=== PATIENT | female | born 1985 | race Caucasian/White ===

== ENCOUNTER → 2020-08-16 | Outpatient (CLI) | payer OTHER ==
--- NOTE | 2020-08-16 15:45 | US ---
EXAMINATION TYPE: Transabdominal DATE OF EXAM: 08/16/2020 3:27 PM COMPARISON: NONE CLINICAL HISTORY: [id number] Confirm dates. confirm dates EXAM PERFORMED: Transabdominal (TA) EXAM MEASUREMENTS: GESTATIONAL AGE / DATING Physician Established: Not yet established Dates by LMP: (8 weeks/6 days) EDC: 03/22/21 Dates by First Scan: No previous this is first scan Dates by Current Scan for: (8 weeks/2 days) EDC: 03/26/21 MATERNAL ANATOMY Uterus: 11.1 x 6.0 x 8.0cm Right Ovary: 3.1 x 2.0 x 2.8cm Left Ovary: 2.8 x 1.5 x 1.7cm Post CDS / Adnexa: wnl Presence of free fluid: no Presence of corpus luteal cyst: complex area right ovary = 2.1 x 1.9 x 2.0cm GESTATION / SURVEY CRL: 1.7cm (8 weeks/2 days) Yolk Sac (normal less than 6mm): 0.3cm Heart Rate: 165 bpm Rhythm: Normal IUP: Viable IUP Date of LMP: 06/15/20 Beta HcG (if available): Not available at this time IMPRESSION: Single viable intrauterine . Complex area right ovary may reflect hemorrhagic corpus luteal cyst.
== END | disposition home or self-care (01) ==
LOC: RADUSWWP 15:06
PROVIDERS: ATTEND Obstetrics & Gynecology
DX: Z36.9 Encounter for antenatal screening, unspecified (principal); Z3A.08 8 weeks gestation of pregnancy
CPT/HCPCS: 76801

== ENCOUNTER 2022-08-28 17:59 | Outpatient (CLI) | payer OTHER ==
[2022-08-28 19:03] LABS: Appearance,Urine Clear (Clear); Bilirubin,Urine Negative (Negative); Blood,Urine Negative (Negative); Color,Urine Yellow; Glucose,Urine (UA) Negative (Negative); Ketones,Urine Negative (Negative); Leukocyte Esterase,Urine Negative (Negative); Nitrite,Urine Negative (Negative); Protein,Urine Trace (Negative); Specific Gravity,Urine 1.025 (1.001-1.035); Urobilinogen,Urine <2.0 mg/dL (<2.0)
[2022-08-28 19:55] VITALS: BP 118/62; PULSE 83; RESP 16; TEMP 97
--- NOTE | 2022-08-29 08:04 | P.MSEPDOC ---
Presenting Problems - Arrival Data Date of Arrival on Unit: 08/28/22 Time of Arrival on Unit: 17:59 Mode of Transport: Ambulatory - Complaint OB-Reason for Admission/Chief Complaint: Pain Comment: Patient presents to triage stating she has not been feeling well the last. several days, states that she has been experiencing pain/tingling/pressure in her. vagina, some intermittent cramping and some sharp shooting pains. Denies intercourse in. the last 24 hours, leaking of fluid or vaginal bleeding. Patient reports active . movement. per Patrica Aleamn RN Medical History - Information : 5 Para: 4 Term: 4 : 0 Abortions: Spontaneous or Elective: 0 Number of Living Children: 4 - Gestational Age Gestational Age by HANS (wks/days): 27 Weeks and 4 Days - History Comment: Placenta previa resolved Review of Systems - Review of Systems Constitutional: No problems Breast: No problems ENT: No problems Cardiovascular: No problems Respiratory: No problems Gastrointestinal: No problems Genitourinary: No problems Musculoskeletal: No problems Neurological: No problems Skin: No problems Vital Signs - Temperature Temperature: 97.0 F Temperature Source: Temporal Artery Scan - Pulse Pulse Oximetery Pulse Rate: 83 Pulse Assessment Method: Automatic Cuff - Respirations Respiratory Rate: 16 Oxygen Delivery Method: Room Air O2 Sat by Pulse Oximetry: 97 - Blood Pressure Right Arm Blood Pressure: 118/62 Blood Pressure Mean: 80 Blood Pressure Source: Automatic Cuff Medical Screen Scoring - Assessment - Baby A Baseline FHR: 140 Heart Rate - NICHD Category: Category I (Normal) NST: Reactive Physician Notification - Physician Notified Physician Notified Date: 08/28/22 Physician Notified Time: 19:09 Physician: Jaquelin Weems New Order Received: Yes - Notification Comment Comment: see obix notes RN reviewed UA results and called Dr. Weems at 1909 with results, patient. is not davonte, abdomen is soft. Dr. Weems aware via telephone of UA results and. ordered patient to be discharged and keep regular follow up appt. Maternal Triage Index - Non-Urgent/Priority 4 Non-Urgent Priority 4: Yes Criteria Met for Priority 4: Patient presents to triage stating she has not been feeling well the last. several days, states that she has been experiencing pain/tingling/pressure in her. vagina, some intermittent cramping and some sharp shooting pains. Denies intercourse in. the last 24 hours, leaking of fluid or vaginal bleeding. Patient reports active . movement. RN reviewed UA results and called Dr. Weems at 1909 with results, patient. is not davonte, abdomen is soft. Dr. Weems aware via telephone of UA results and. ordered patient to be discharged and keep regular follow up appt. Disposition - Disposition OB Disposition: Discharge to home Discharge Date: 08/28/22 Discharge Time: 19:14 I agree with the RN Medical Screening Exam: Yes Case reviewed; plan agreed upon as documented in EMR&OBIX.: Yes Diagnosis: PAIN, UNSPECIFIED
== END 2022-08-28 19:14 | disposition home or self-care (01) ==
LOC: FBPOP 17:59
PROVIDERS: ATTEND Obstetrics & Gynecology
DX: O99.891 Other specified diseases and conditions complicating pregnancy (principal); R52 Pain, unspecified; Z3A.27 27 weeks gestation of pregnancy; O44.13 Complete placenta previa with hemorrhage, third trimester; Z88.0 Allergy status to penicillin; Z88.1 Allergy status to other antibiotic agents
CPT/HCPCS: 81003; G0463; 99213